=== PATIENT | male | born 2000 | race Caucasian/White ===

== ENCOUNTER 2023-06-10 13:37 | Emergency (ER) | payer BC, MEDICARE, OTHER ==
[2023-06-10 14:01] VITALS: TEMP 97.4
--- NOTE | 2023-06-10 14:04 | ED ---
URI HPI - General Chief Complaint: Upper Respiratory Infection Stated Complaint: PRETTY,Cough Time Seen by Provider: 06/10/23 13:46 Source: patient, RN notes reviewed Mode of arrival: ambulatory Limitations: no limitations, language barrier - History of Present Illness Initial Comments: 23-year-old male presents emergency Department chief complaint cough congestion fever or chills bodyaches. Symptoms started last 3-4 days. Patient states symptoms are worse at nighttime. Patient denies any sick contacts denies any GI symptoms including nausea vomiting diarrhea constipation denies any neck pain or neck stiffness. - Related Data Previous Rx's Medication Instructions Recorded Azithromycin [Zithromax] 500 mg PO DAILY #5 tab 06/10/23 predniSONE 50 mg PO DAILY #5 tab 06/10/23 Allergies Allergy/AdvReac Type Severity Reaction Status Date / Time bee venom protein (honey bee) Allergy Rash/Hives Verified 06/10/23 13:44 Review of Systems ROS Statement: Those systems with pertinent positive or pertinent negative responses have been documented in the HPI. ROS Other: All systems not noted in ROS Statement are negative. Past Medical History Past Medical History: Asthma Past Surgical History: No Surgical Hx Reported Smoking Status: Vaper General Exam Limitations: no limitations, language barrier Head exam: Present: atraumatic, normocephalic, normal inspection Eye exam: Present: normal appearance, PERRL, EOMI. Absent: scleral icterus, conjunctival injection, periorbital swelling ENT exam: Present: normal exam, normal oropharynx, mucous membranes moist Neck exam: Present: normal inspection, full ROM. Absent: tenderness, meningismus, lymphadenopathy Respiratory exam: Present: normal lung sounds bilaterally. Absent: respiratory distress, wheezes, rales, rhonchi, stridor Cardiovascular Exam: Present: regular rate, normal rhythm, normal heart sounds. Absent: systolic murmur, diastolic murmur, rubs, gallop, clicks GI/Abdominal exam: Present: soft, normal bowel sounds. Absent: distended, tenderness, guarding, rebound, rigid Course Vital Signs 06/10/23 13:41 Temperature 97.4 F L Pulse Rate 85 Respiratory 16 Rate Blood Pressure 185/67 O2 Sat by Pulse 95 Oximetry Medical Decision Making - Medical Decision Making Was pt. sent in by a medical professional or institution (, PA, BEHAVIORAL HEALTH ASSOCIATE, urgent care, hospital, or fdc...) When possible be specific @ -No Did you speak to anyone other than the patient for history (EMS, parent, family, police, friend...)? What history was obtained from this source @ -No Did you review nursing and triage notes (agree or disagree)? Why? @ -I reviewed and agree with nursing and triage notes Were old charts reviewed (outside hosp., previous admission, EMS record, old EKG, old radiological studies, urgent care reports/EKG's, fdc records)? Report findings @ -No old charts were reviewed Differential Diagnosis (chest pain, altered mental status, abdominal pain women, abdominal pain men, vaginal bleeding, weakness, fever, dyspnea, syncope, headache, dizziness, GI bleed, back pain, seizure, CVA, palpatations, mental health, musculoskeletal)? @ -COVID 19, RSV, influenza, pneumonia, acute bronchitis, URI, this list is not all inclusivele EKG interpreted by me (3pts min.). @ -None X-rays interpreted by me (1pt min.). @ -Chest 2 view x-ray shows possible atypical pneumonia, atelectasis CT interpreted by me (1pt min.). @ -None done U/S interpreted by me (1pt. min.). @ -None done What testing was considered but not performed or refused? (CT, X-rays, U/S, labs)? Why? @ -None What meds were considered but not given or refused? Why? @ -None Did you discuss the management of the patient with other professionals (professionals i.e. , PA, BEHAVIORAL HEALTH ASSOCIATE, lab, RT, psych nurse, social media sr strategy manager, extrusion die template maker, teacher, customs and immigration officer, case work aide)? Give summary @ -No Was smoking cessation discussed for >3mins.? @ -No Was critical care preformed (if so, how long)? @ -No Were there social determinants of health that impacted care today? How? (Homelessness, low income, unemployed, alcoholism, drug addiction, transportation, low edu. Level, literacy, decrease access to med. care, [facility], rehab)? @ -No Was there de-escalation of care discussed even if they declined (Discuss DNR or withdrawal of care, Hospice)? DNR status @ -No What co-morbidities impacted this encounter? (DM, HTN, Smoking, COPD, CAD, Cancer, CVA, ARF, Chemo, Hep., AIDS, mental health diagnosis, sleep apnea, morbid obesity)? @ -[Asthma Was patient admitted / discharged? Hospital course, mention meds given and route, prescriptions, significant lab abnormalities, going to OR and other pertinent info. @ -Discharge patient's chest x-ray shows evidence of atypical pneumonia patient has a history of asthma we treated for mild asthma exacerbation, atypical pneumonia with azithromycin patient negative viral swab. Undiagnosed new problem with uncertain prognosis? @ -No Drug Therapy requiring intensive monitoring for toxicity (Heparin, Nitro, Insulin, Cardizem)? @ -No Were any procedures done? @ -No Diagnosis/symptom? @ -Atypical pneumonia, asthma Acute, or Chronic, or Acute on Chronic? @ -[Acute Uncomplicated (without systemic symptoms) or Complicated (systemic symptoms)? @ -[Uncomplicated Side effects of treatment? @ -No Exacerbation, Progression, or Severe Exacerbation? @ -Mild exacerbation Poses a threat to life or bodily function? How? (Chest pain, [place], [place], pneumonia, PE, COPD, DKA, ARF, appy, cholecystitis, CVA, Diverticulitis, Homicidal, Suicidal, threat to staff... and all critical care pts) @ -No - Lab Data Lab Results 06/10/23 Range/Units 13:50 Influenza Type A (PCR) Not Detected (Not Detectd) Influenza Type B (PCR) Not Detected (Not Detectd) RSV (PCR) Not Detected (Not Detectd) SARS-CoV-2 (PCR) Not Detected (Not Detectd) Disposition Clinical Impression: Asthma, Atypical pneumonia Disposition: HOME SELF-CARE Condition: Stable Instructions (If sedation given, give patient instructions): Upper Respiratory Infection (ED) Additional Instructions: Please return to the Emergency Department if symptoms worsen or any other concerns. Prescriptions: predniSONE 50 mg PO DAILY #5 tab Azithromycin [Zithromax] 500 mg PO DAILY #5 tab Is patient prescribed a controlled substance at d/c from ED?: No Referrals: Ottoniel Moore MD [Primary Care Provider] - 1-2 days Time of Disposition: 16:02
--- NOTE | 2023-06-10 16:12 | XR ---
EXAMINATION TYPE: XR chest 2V DATE OF EXAM: 06/10/2023 3:58 PM CLINICAL INDICATION:Male, 23 years old with history of cough; [facility] COMPARISON: None TECHNIQUE: XR chest 2V Frontal and lateral views of the chest. FINDINGS: Lungs/Pleura: Low lung volumes are present. There is no evidence of pleural effusion, focal consolida tion, or pneumothorax. Pulmonary vascularity: Unremarkable. Heart/mediastinum: Cardiomediastinal silhouette is unremarkable. Musculoskeletal: No acute osseous pathology. IMPRESSION: Low lung volumes with a generalized hazy appearance which could represent atelectasis versus pulmonar y edema versus atypical pneumonia.
[2023-06-10] MEDS ORDERED: AZITHROMYCIN 250 MG TAB PO STA (16:22)
[2023-06-10 16:55] VITALS: BP 126/81; PULSE 96; RESP 18
== END 2023-06-10 16:53 | disposition home or self-care (01) ==
LOC: EC 13:37
DX: J18.9 Pneumonia, unspecified organism (principal); J45.909 Unspecified asthma, uncomplicated; F17.290 Nicotine dependence, other tobacco product, uncomplicated; Z91.030 Bee allergy status; Z20.822 Contact with and (suspected) exposure to COVID-19
CPT/HCPCS: 71046; 87636; 99284

== ENCOUNTER → 2023-12-21 | Outpatient (CLI) | payer BC, MEDICARE, OTHER ==
--- NOTE | 2023-12-26 22:44 | MR ---
EXAMINATION TYPE: MR knee LT wo con DATE OF EXAM: 12/21/2023 COMPARISON: Outside left knee x-ray December 17, 2023 HISTORY: Left knee pain. TECHNIQUE: Multiplanar, multisequence images of the knee is performed without IV contrast. FINDINGS: MEDIAL MENISCUS: Horizontal increased signal posterior horn does not extend to articular surface. LATERAL MENISCUS: Anterior and posterior horns are intact without tear. CRUCIATE LIGAMENTS: The anterior and posterior cruciate ligaments are intact and unremarkable. COLLATERAL LIGAMENTS: The medial collateral ligament and lateral collateral ligament complex are inta ct and unremarkable. EXTENSOR MECHANISM: Visualized quadriceps and patellar tendons are intact. EFFUSION: No significant suprapatellar joint effusion. POPLITEAL CYST: No popliteal/suarez cyst. TRICOMPARTMENT SPACES: Tricompartment joint spaces are maintained. No significant spurring is seen CARTILAGE: Tricompartmental articular cartilage is preserved. BONE MARROW SIGNAL: No focal abnormal marrow signal is appreciated. OTHER: [id number]-uvqwojey subcutaneous edema superficial infrapatellar level. IMPRESSION: Possible intrasubstance tear posterior horn medial meniscus, no full-thickness meniscal o r ligamentous tear is seen. Mild superficial infrapatellar edema.
== END | disposition home or self-care (01) ==
LOC: RADMRIMAIN 20:15
PROVIDERS: ATTEND Orthopaedic Surgery
DX: M25.562 Pain in left knee (principal); R60.0 Localized edema

== ENCOUNTER 2024-02-20 10:16 | Day surgery (SDC) | payer BC, MEDICARE, OTHER ==
[2024-02-14 15:18] VITALS: BMI 39.0
[~2024-02-20 10:16] MED LIST: LIDOCAINE 1% (10MG/ML) FOR IV START INTRADERMA PRN
[2024-02-20] MEDS: IV FLUID CONTINUATION 1,000 ML IV ONE (10:38)
[2024-02-20 10:48] VITALS: TEMP 99.1
[2024-02-20] MEDS: LACTATED RINGERS 1,000 ML IV SCH (10:55)
[2024-02-20] MEDS ORDERED: PROPOFOL 10 MG/ML 20 ML VIAL IV ONE (11:12)
--- NOTE | 2024-02-20 11:22 | P.PCN ---
Date of Procedure: 02/20/24 Procedure(s) Performed: BRIEF HISTORY: Patient is a 23-year-old, pleasant, white male scheduled for an upper endoscopy as a part of evaluation of longstanding history of GERD. He has been on omeprazole 20 mg twice daily and still remains symptomatic. He has daily heartburn, passive regurgitation and occasional nausea vomiting. PROCEDURE PERFORMED: Esophagogastroduodenoscopy.With biopsy PREOPERATIVE DIAGNOSIS: Longstanding history of GERD. IV sedation per anesthesia. PROCEDURE: After informed consent was obtained, the patient was brought into the endoscopy unit. IV sedation was administered by Anesthesia under continuous monitoring. Initially the Olympus GIF-140 video endoscope was inserted into the mouth. Esophagus intubated without any difficulty. It was gradually advanced into the stomach and duodenum and carefully examined. The bulb and the second part of the duodenum appeared normal. The scope at this time was withdrawn to the stomach, adequately insufflated with air, and upon careful examination, mucosa of the antrum had linear esophageal erythema consistent with gastritis and biopsies were done from this area. Mucosa of the, body, cardia and the fundus appeared normal. The scope was then withdrawn into the esophagus. Small hiatal hernia noted. The GE junction was located at 41 cm from the incisors. GE junction appeared slightly irregular and there was a 2 to 3 mm tongues of Feliciano's appearing mucosa just proximal to the GE junction that was biopsied. The rest of the esophagus appeared normal. There were no erosions or ulcerations seen and the patient tolerated the procedure well. IMPRESSION: 1. 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 2. Mild antral gastritis. RECOMMENDATIONS: The findings of this examination were discussed with the patient as well as his family. He was advised to follow-up with the biopsy results. If the biopsies confirm the presence of Feliciano's esophagus, recommended repeat upper endoscopy in 3 years. In the meantime advised to continue with omeprazole 20 mg twice daily half hour before breakfast and dinnertime and follow antireflux measures and add Pepcid 20 mg at bedtime..
[2024-02-20 11:28] VITALS: PULSE 74; RESP 18
[2024-02-20 11:41] VITALS: BP 128/75
== END 2024-02-20 11:49 | disposition home or self-care (01) ==
LOC: ORWHC2ENDO 10:16
PROVIDERS: ATTEND Internal Medicine Gastroenterology
DX: K29.50 Unspecified chronic gastritis without bleeding (principal); K44.9 Diaphragmatic hernia without obstruction or gangrene; K22.70 Barrett's esophagus without dysplasia; K21.9 Gastro-esophageal reflux disease without esophagitis; Z79.899 Other long term (current) drug therapy; Z98.890 Other specified postprocedural states
CPT/HCPCS: 43239; 88305

== ENCOUNTER 2024-06-23 11:47 | Emergency (ER) | payer BC, MEDICARE, OTHER ==
--- NOTE | 2024-06-23 12:03 | ED ---
General Adult HPI - General Stated complaint: sore throat, cough Time Seen by Provider: 06/23/24 11:52 Source: patient, RN notes reviewed Mode of arrival: ambulatory Limitations: no limitations - History of Present Illness Initial comments: 24-year-old male presents emergency department complaint of fever cough congestion. Patient states that has had a cough for several weeks but recent fevers and chills worsening congestion. Patient does admit sore throat with mild ear congestion. Denies any abdominal pain no nausea vomiting or constipation. Patient is not taking recent medications. - Related Data Home Medications Medication Instructions Recorded Confirmed Albuterol Inhaler [Ventolin Hfa 1 - 2 puff INHALATION Q6H PRN 02/14/24 02/20/24 Inhaler] Cholecalciferol [Vitamin D3 (125 125 mcg PO DAILY 02/14/24 02/20/24 Mcg = 5000 Iu)] Montelukast [Singulair] 10 mg PO HS 02/14/24 02/20/24 Omeprazole 40 mg PO DAILY 02/14/24 02/20/24 PARoxetine [Paxil] 10 mg PO HS 02/14/24 02/20/24 Topiramate [Topamax] 100 mg PO BID 02/14/24 02/20/24 levETIRAcetam 250 mg PO BID 02/14/24 02/20/24 Previous Rx's Medication Instructions Recorded Amoxic-Pot Clav 875-125Mg 1 tab PO Q12HR #20 tab 06/23/24 [Augmentin 875-125] Allergies Allergy/AdvReac Type Severity Reaction Status Date / Time bee venom protein (honey bee) Allergy Rash/Hives Verified 06/23/24 12:12 Review of Systems ROS Statement: Those systems with pertinent positive or pertinent negative responses have been documented in the HPI. ROS Other: All systems not noted in ROS Statement are negative. Past Medical History Past Medical History: Asthma, GERD/Reflux, Seizure Disorder, Skin Disorder Additional Past Medical History / Comment(s): acne History of Any Multi-Drug Resistant Organisms: None Reported Past Surgical History: Tonsillectomy Past Anesthesia/Blood Transfusion Reactions: Postoperative Nausea & Vomiting (PONV) Additional Past Anesthesia/Blood Transfusion Reaction / Comment(s): no blood transfusion reaction Smoking Status: Never smoker, Vaper - Past Family History Father Family Medical History: Cancer Additional Family Medical History / Comment(s): throat General Exam Limitations: no limitations General appearance: alert, in no apparent distress Head exam: Present: atraumatic, normocephalic, normal inspection Eye exam: Present: normal appearance, PERRL, EOMI. Absent: scleral icterus, conjunctival injection, periorbital swelling ENT exam: Present: normal exam, normal oropharynx, mucous membranes moist Neck exam: Present: normal inspection, full ROM. Absent: tenderness, meningismus, lymphadenopathy Respiratory exam: Present: normal lung sounds bilaterally. Absent: respiratory distress, wheezes, rales, rhonchi, stridor Cardiovascular Exam: Present: regular rate, normal rhythm, normal heart sounds. Absent: systolic murmur, diastolic murmur, rubs, gallop, clicks Course Vital Signs 06/23/24 06/23/24 12:12 14:11 Temperature 97.7 F 98.1 F Pulse Rate 78 76 Respiratory 22 18 Rate Blood Pressure 125/72 136/76 O2 Sat by Pulse 96 97 Oximetry Medical Decision Making - Medical Decision Making Was pt. sent in by a medical professional or institution (, PA, PLANT CONTROL OPERATOR, urgent care, hospital, or fpc...) When possible be specific @ -No Did you speak to anyone other than the patient for history (EMS, parent, family, police, friend...)? What history was obtained from this source @ -No Did you review nursing and triage notes (agree or disagree)? Why? @ -I reviewed and agree with nursing and triage notes Were old charts reviewed (outside hosp., previous admission, EMS record, old EKG, old radiological studies, urgent care reports/EKG's, fpc records)? Report findings @ -No old charts were reviewed Differential Diagnosis (chest pain, altered mental status, abdominal pain women, abdominal pain men, vaginal bleeding, weakness, fever, dyspnea, syncope, headache, dizziness, GI bleed, back pain, seizure, CVA, palpatations, mental health, musculoskeletal)? @ -COVID 19, RSV, influenza, pneumonia, acute bronchitis, URI, this list is not all inclusive EKG interpreted by me (3pts min.). @ -None X-rays interpreted by me (1pt min.). @ -Chest x-ray 2 view shows evidence of right middle lobe pneumonia CT interpreted by me (1pt min.). @ -None done U/S interpreted by me (1pt. min.). @ -None done What testing was considered but not performed or refused? (CT, X-rays, U/S, l abs)? Why? @ -None What meds were considered but not given or refused? Why? @ -None Did you discuss the management of the patient with other professionals (professionals i.e. , PA, PLANT CONTROL OPERATOR, lab, RT, psych nurse, social work assistant, candy starch mold printer, teacher, structural engineering drafting officer, outsole caser)? Give summary @ -No Was smoking cessation discussed for >3mins.? @ -No Was critical care preformed (if so, how long)? @ -No Were there social determinants of health that impacted care today? How? (Homelessness, low income, unemployed, alcoholism, drug addiction, transportation, low edu. Level, literacy, decrease access to med. care, retirement, rehab)? @ -No Was there de-escalation of care discussed even if they declined (Discuss DNR or withdrawal of care, Hospice)? DNR status @ -No What co-morbidities impacted this encounter? (DM, HTN, Smoking, COPD, CAD, Cancer, CVA, ARF, Chemo, Hep., AIDS, mental health diagnosis, sleep apnea, morbid obesity)? @ -None Was patient admitted / discharged? Hospital course, mention meds given and route, prescriptions, significant lab abnormalities, going to OR and other pertinent info. @ -Discharged patient has evidence of pneumonia patient is no signs distress patient negative Cepheid discharge after Rocephin on Augmentin. Undiagnosed new problem with uncertain prognosis? @ -No Drug Therapy requiring intensive monitoring for toxicity (Heparin, Nitro, Insulin, Cardizem)? @ -No Were any procedures done? @ -No Diagnosis/symptom? @ -Pneumonia Acute, or Chronic, or Acute on Chronic? @ -Acute Uncomplicated (without systemic symptoms) or Complicated (systemic symptoms)? @ -Complicated Side effects of treatment? @ -No Exacerbation, Progression, or Severe Exacerbation? @ -No Poses a threat to life or bodily function? How? (Chest pain, [place], [place], pneumonia, PE, COPD, DKA, ARF, appy, cholecystitis, CVA, Diverticulitis, Homicidal, Suicidal, threat to staff... and all critical care pts) @ -No - Lab Data Lab Results 06/23/24 Range/Units 12:47 Influenza Type A (PCR) Not Detected (Not Detectd) Influenza Type B (PCR) Not Detected (Not Detectd) RSV (PCR) Not Detected (Not Detectd) SARS-CoV-2 (PCR) Not Detected (Not Detectd) Disposition Clinical Impression: Pneumonia Disposition: HOME SELF-CARE Condition: Stable Instructions (If sedation given, give patient instructions): Pneumonia (ED) Additional Instructions: Please return to the Emergency Department if symptoms worsen or any other concerns. Prescriptions: Amoxic-Pot Clav 875-125Mg [Augmentin 875-125] 1 tab PO Q12HR #20 tab Is patient prescribed a controlled substance at d/c from ED?: No Referrals: Mary Mendoza MD [Primary Care Provider] - 1-2 days Time of Disposition: 13:59
--- NOTE | 2024-06-23 12:46 | XR ---
EXAMINATION TYPE: XR chest 2V DATE OF EXAM: 06/23/2024 12:29 PM COMPARISON: 06/10/2023 CLINICAL INDICATION: Male, 24 years old with history of fever, TECHNIQUE: XR chest 2V view(s) obtained. FINDINGS: The heart size is normal. The pulmonary vasculature is normal. Minimal infiltrate in the right lower lobe may remain present. This is nonspecific. Consider subsegme ntal atelectasis. IMPRESSION: 1. Mild right lower lobe infiltrate. Correlate for atelectasis [facility], , 06/23/2024 12:44 PM
[2024-06-23] MEDS: cefTRIAXone 1,000 MG VIAL (IM USE) IM STA (14:08)
[2024-06-23 14:16] VITALS: BP 136/76; PULSE 76; RESP 18; TEMP 98.1
== END 2024-06-23 14:28 | disposition home or self-care (01) ==
LOC: EC 11:47
DX: J18.9 Pneumonia, unspecified organism (principal); F17.290 Nicotine dependence, other tobacco product, uncomplicated; Z91.030 Bee allergy status
CPT/HCPCS: 87636; 71046; 99283; 96372; J0696

== ENCOUNTER → 2024-07-09 | Outpatient (CLI) | payer BC, MEDICARE, OTHER ==
[2024-07-09 10:30] VITALS: BP 132/84; PULSE 68; RESP 16; TEMP 97.3
--- NOTE | 2024-07-09 11:07 | P.SLEEP ---
History of Present Illness DATE: 07/09/2024 CONSULTATION/NEW PATIENT EVALUATION HISTORY OF PRESENT ILLNESS/SLEEP-WAKE EVALUATION: 24-year-old gentleman had been evaluated in the sleep center for possible obstructive sleep apnea hypopnea syndrome. Patient has history of obstructive sleep apnea diagnosed in another institution 8 years ago, he was started on treatment with CPAP at that time use it for about 1 year and then 4 different reasons treatment was stopped. SLEEP SCHEDULE: Usually sleep schedule from midnight until 11 AM. FALLING ASLEEP: Patient has difficulties with falling asleep, has TV set in bedroom. DURING SLEEP: Patient sleeps in different positions with snoring and episodes of stop breathing during the sleep. Patient wakes up from sleep 4 times with nocturia. Positive history of restless leg symptoms. Positive history of sleep talking, sweating, dry mouth, heartburn. No history of hypnogogical hallucinations, sleep paralysis, or cataplexy. DURING THE DAY/WAKE STATE: In the morning patient wake up tired, has difficulties to pay attention, has problems with memory and concentration.. [place] sleepiness scale is significantly increased to 15. Patient take naps twice a day. PAST MEDICAL HISTORY: Epilepsy, last seizure episode about age of 10, asthma, acid reflux. PAST SURGICAL HISTORY: Tonsillectomy. MEDICATIONS: Please see below. SOCIAL HISTORY: Please see below. FAMILY HISTORY: Please see below. REVIEW OF SYSTEMS: Snoring, multiple awakenings from sleep, sleepiness during the day. No fevers. No double vision. No recent chest pain. No shortness of breath. No abdominal pain. No bleeding episodes. No blood in urine. No seizure episodes. PHYSICAL EXAMINATION: GENERAL: A pleasant patient without any distress. VITAL SIGNS: Please see below, weight 289 pounds, BMI 43.8. HEENT: ROLAND, EOMI. Evaluation of oropharynx showed tongue protrudes midline, low position of soft palate Mallampati 4. NECK: Supple. No JVD. Thyroid is not palpable. 18-3/4 inches in circumference. LUNGS: Clear to percussion and to auscultation. Good air exchange. No wheezing or rhonchi. HEART: S1, S2 regular. No murmurs, gallops or rubs. ABDOMEN: Soft and nontender. Bowel sounds are present. No organomegaly appreciated. EXTREMITIES: No clubbing or cyanosis. SENIOR ANALYSIS SPECIALIST: Awake, alert, and oriented x3. Cranial nerves 2 to 7 intact. There is no fasciculation or atrophy noted. No focal deficits observed. ASSESSMENT: 1. Snoring, multiple awakenings from sleep, extremely low position of soft palate Mallampati 4, wide neck 18 and three-quarter inches in circumference, sleepiness with [place] Sleepiness Scale 15, history of obstructive sleep apnea in the past. Obstructive sleep apnea hypopnea syndrome. 2. Obesity, BMI 43.8. 3. Epilepsy, last episode of seizures according to patient at the age of 10. 4. Asthma. 5 acid reflux. 6 . Restless leg symptoms. 7. Status post tonsillectomy. PLAN: 1. Polysomnography for evaluation of patient's breathing during sleep. 2. Following plan after reading sleep study. 3. Preferable position during sleep on the side. 4. No driving if patient feels any sleepiness. Patient is aware of civil and criminal liability for unsafe driving. 5. Sleep hygiene with regular sleep time for at least 7.5-8 hours. 6. Watching and losing weight. Thank you very much for referring this patient for consultation. Sincerely, Karsten Dawson MD, PhD, FAASM. Diplomat of [employer], Sleep Medicine Board by [employer] Video Game Engineer [facility] [place] cc: Mary Mendoza MD Past Medical History Past Medical History: Asthma, GERD/Reflux, Seizure Disorder, Skin Disorder Additional Past Medical History / Comment(s): acne, sinus headaches, restless legs History of Any Multi-Drug Resistant Organisms: None Reported Past Surgical History: Tonsillectomy Past Anesthesia/Blood Transfusion Reactions: Postoperative Nausea & Vomiting (PONV) Additional Past Anesthesia/Blood Transfusion Reaction / Comment(s): no blood transfusion reaction Past Psychological History: ADD/ADHD, Depression Additional Psychological History / Comment(s): autistic Smoking Status: Never smoker, Vaper Past Alcohol Use History: Occasional Past Drug Use History: None Reported - Past Family History Father Family Medical History: Cancer, Diabetes Mellitus, Hyperlipidemia, Hypertension, Sleep Apnea/CPAP/BIPAP Additional Family Medical History / Comment(s): throat Cancer, Arthritis unknown type,, snoring Mother Family Medical History: Asthma Additional Family Medical History / Comment(s): arthritis unknown type Medications and Allergies Home Medications Medication Instructions Recorded Confirmed Type Albuterol Inhaler [Ventolin Hfa 1 - 2 puff INHALATION Q6H PRN 02/14/24 07/09/24 History Inhaler] Cholecalciferol [Vitamin D3 (125 125 mcg PO DAILY 02/14/24 07/09/24 History Mcg = 5000 Iu)] Montelukast [Singulair] 10 mg PO HS 02/14/24 07/09/24 History Omeprazole 40 mg PO DAILY 02/14/24 07/09/24 History PARoxetine [Paxil] 10 mg PO HS 02/14/24 02/20/24 History Topiramate [Topamax] 100 mg PO BID 02/14/24 07/09/24 History levETIRAcetam 250 mg PO BID 02/14/24 07/09/24 History Amoxic-Pot Clav 875-125Mg 1 tab PO Q12HR #20 tab 06/23/24 Rx [Augmentin 875-125] FLUoxetine HCL 20 mg PO HS 07/09/24 07/09/24 History Pantoprazole [Protonix] 07/09/24 History Pantoprazole [Protonix] 40 mg PO BID 07/09/24 07/09/24 History Allergies Allergy/AdvReac Type Severity Reaction Status Date / Time bee venom protein (honey bee) Allergy Rash/Hives Verified 06/23/24 12:12 Physical Exam Vitals: Vital Signs Temp Pulse Resp BP Pulse Ox 07/09/24 10:29 97.3 F L 68 16 132/84 96 Intake and Output 07/08/24 07/09/24 07/09/24 22:59 06:59 14:59 Other: Weight 131.088 kg Sleep Note - Sleep Data ESS Total: 15 - Sleep Note Sleep Note: Temperature: 97.3 F Pulse Rate: 68 Respiratory Rate: 16 Blood Pressure: 132/84 SpO2: 96 Height: 5 ft 7.5 in Weight: 131.088 kg BMI: Neck Circumference: 18.7
== END ==
LOC: 3 N SLEEP 10:09
PROVIDERS: ATTEND Internal Medicine
DX: G47.33 Obstructive sleep apnea (adult) (pediatric) (principal); R06.83 Snoring; G40.909 Epilepsy, unspecified, not intractable, without status epilepticus; J45.909 Unspecified asthma, uncomplicated; K21.9 Gastro-esophageal reflux disease without esophagitis; G25.81 Restless legs syndrome; E66.9 Obesity, unspecified; Z68.41 Body mass index [BMI] 40.0-44.9, adult; Z90.89 Acquired absence of other organs; Z91.030 Bee allergy status
CPT/HCPCS: 99211

== ENCOUNTER 2024-09-14 19:30 | Outpatient (CLI) | payer BC, MEDICARE, OTHER ==
--- NOTE | 2024-09-17 16:28 | P.PCN ---
Description of Procedure: CLINICAL: Titration with positive air pressure has been done for correction of respiratory abnormalities during sleep. DESCRIPTION OF PROCEDURE: The standard montage for clinical polysomnography included the electroencephalogram, the electrocardiogram, the mentalis surface electromyography and Lead II cardiography. The respiratory battery consisted of measurements of nasal /buccal air flow, pressure transducer measurements from the nose, thoracic and /or abdominal effort and intercostal surface electromyography. Video monitoring has been done to check for any parasomnia events. Nocturnal oxyhemoglobin saturations were obtained by finger oximetry. Step-pizarro titration with positive airway pressure was utilized to control respiratory events. Raw data of sleep recording has been reviewed and is adequate. RESULTS: Sleep efficiency was normal 91.8%. Latency to sleep onset was normal 27.5 minutes.]. Sleep architecture showed stage N1 was slightly short 3.7%, Delta sleep was normal 22.7%, REM sleep was short 8.3%. Heart rate was minimum 52 BPM, maximum 64 BPM, average 56 BPM. EMG showed 10 periodic limb movements per hour with 1.6 micriarousals per hour. PAP titration have been done with CPAP up to the pressure 13 cm H2O. Patient had problems with CPAP, switched to BPAP. BPAP titrated up to 17/13 cm H2O. The best results were at the pressure 17/13 cm H2O. Apnea hypopnea index reduced to 1.6. IMPRESSION: 1. Obstructive sleep apnea hypopnea syndrome mostly on controle with BPAP treatment. 2. No significant periodic limb movements have been documented. Please see other impressions from consultation. PLAN: 1. The patient will have treatment with positive air pressure equipment with the level of pressure AutoBPAP with maximal inspiratory pressure 17 and minimal expiratory pressure 10 cm H2O and should use it every night for the whole night. 2. Watching and losing weight. 3. Sleep hygiene with regular time in bed for at least 8 hours. 4. No driving if feeling any sleepiness. 5. I will see the patient for follow up visit to explain the results of the test, recommendations, check compliance with treatment and make any necessary adjustment related to mask fitting, pressure and humidification. Thank you very much for allowing me to participate in the management of your patient. Sincerely, Karsten Dawson MD, PhD, FAASM Diplomat of [place] [employer] Sleep Medicine Board of [place] [employer] [facility] [place] cc: Mary Mendoza MD
== END 2024-09-15 05:40 | disposition home or self-care (01) ==
LOC: 3 N SLEEP 19:30
PROVIDERS: ATTEND Internal Medicine
DX: G47.33 Obstructive sleep apnea (adult) (pediatric) (principal); Z91.030 Bee allergy status; Z99.89 Dependence on other enabling machines and devices
CPT/HCPCS: 95811

== ENCOUNTER → 2024-11-27 | Outpatient (CLI) | payer BC, MEDICARE, OTHER ==
[2024-11-27 15:39] VITALS: BP 112/73; PULSE 72; RESP 16; TEMP 98.5
--- NOTE | 2024-11-27 15:54 | P.PROGSL ---
Subjective DATE: 11/27/2024 FOLLOW UP VISIT. Patient with obstructive sleep apnea hypopnea syndrome return to sleep center for follow-up visit. Recently patient had sleep study which documented obstructive sleep apnea hypopnea syndrome. Patient was initiated on PAP therapy and today is first visit after treatment was started. Patient was able to use PAP equipment every night for the whole night. The patient does not have significant problems with the mask, PAP pressure and humidification. [place] sleepiness scale is 4. I checked information from PAP unit. PAP unit pressure maximal inspiratory pressure 18 minimal expiratory pressure 10, pressure support 4, average pressure 15.5 for 11.5 cm H2O. Usage is 93% and 87% for more then 4 hours, average 7.6 hours per night. Leak is 8.7 l/m, which is in acceptable range. Apnea Hypopnea Index is 0.8, which is perfect. MEDICATIONS: Please see below During physical exam: GENERAL: A pleasant patient without any distress. VITAL SIGNS: Please see below, weight 286 pounds. HEENT: PERRLA, EOMI.low position of soft palate, Mallapati 4 . NECK: Supple. No JVD. LUNGS: Clear to percussion and to auscultation. Good air exchange. No wheezing or rhonchi. HEART: S1, S2 regular. ABDOMEN: Soft and nontender. Obese EXTREMITIES: No clubbing or cyanosis. POWER SAW OPERATOR: Awake, alert, and oriented x3. No focal deficit. Impressions: 1. Severe obstructive sleep apnea-hypopnea syndrome, apnea hypopnea index during sleep study 46.9. Patient demonstrated great compliance with treatment, benefiting from treatment. 2. Obesity. 3. Asthma. 4. History of epilepsy in the past. 5. Acid reflux. 6. Status post tonsillectomy. Plan: 1. Continue using PAP equipment every night for the whole night. 2. To change air filter at least 1-2 times per month. 3. PAP unit should stay lower then position of the head. 4. Advised patient to remove all remaining water from humidifier canister daily and make it dry after each usage. Refill canister with fresh distilled water before each usage. 5. Sleep hygiene with regular time in bed for at least 8 hours. 6. Precautions related to driving. No driving if feel any sleepiness. 7. I will maintain prescription for PAP supplies including mask, tube, filters. 8. Follow up visit in 8 months or earlier if patient has any problems. 9. Watching and losing weight. Thank you very much for allowing me to participate in the management of your patient. Karsten Dawson MD, PhD, FAASM. Diplomat of [place], Sleep Medicine Board by [employer] Liver Trimmer [facility] [place] Objective - Vital Signs Vital Signs: Vital Signs Temp 98.5 F 11/27/24 15:36 Pulse 72 11/27/24 15:36 Resp 16 11/27/24 15:36 BP 112/73 11/27/24 15:36 Pulse Ox 97 11/27/24 15:36 FiO2 Intake & Output 11/26/24 11/27/24 11/27/24 18:59 06:59 18:59 Weight 129.727 kg Home Medications: Home Medications Medication Instructions Recorded Confirmed Type Albuterol Inhaler [Ventolin Hfa 1 - 2 puff INHALATION Q6H PRN 02/14/24 07/09/24 History Inhaler] Cholecalciferol [Vitamin D3 (125 125 mcg PO DAILY 02/14/24 07/09/24 History Mcg = 5000 Iu)] Montelukast [Singulair] 10 mg PO HS 02/14/24 07/09/24 History Omeprazole 40 mg PO DAILY 02/14/24 07/09/24 History PARoxetine [Paxil] 10 mg PO HS 02/14/24 02/20/24 History Topiramate [Topamax] 100 mg PO BID 02/14/24 07/09/24 History levETIRAcetam 250 mg PO BID 02/14/24 07/09/24 History Amoxic-Pot Clav 875-125Mg 1 tab PO Q12HR #20 tab 06/23/24 Rx [Augmentin 875-125] FLUoxetine HCL 20 mg PO HS 07/09/24 07/09/24 History Pantoprazole [Protonix] 07/09/24 History Pantoprazole [Protonix] 40 mg PO BID 07/09/24 07/09/24 History
== END ==
LOC: 3 N SLEEP 14:57
PROVIDERS: ATTEND Internal Medicine
DX: G47.33 Obstructive sleep apnea (adult) (pediatric) (principal); E66.9 Obesity, unspecified; J45.909 Unspecified asthma, uncomplicated; K21.9 Gastro-esophageal reflux disease without esophagitis; Z99.89 Dependence on other enabling machines and devices; Z86.69 Personal history of other diseases of the nervous system and sense organs; Z90.89 Acquired absence of other organs
CPT/HCPCS: 99212